=== PATIENT | male | born 2000 | race Hispanic/Latino ===

== ENCOUNTER 2018-04-11 08:18 | Emergency (ER) | payer SELFPAY ==
[2018-04-11] MEDS ORDERED: TETANUS/DIPHTHERIA TOXOID [ADULT] 0.5 ML VIAL IM ONE (08:38)
== END 2018-04-11 09:38 | disposition home or self-care (01) ==
LOC: EDH 08:18
DX: S91.132A Puncture wound without foreign body of left great toe without damage to nail, initial encounter (principal); Z72.0 Tobacco use; W45.8XXA Other foreign body or object entering through skin, initial encounter; Y93.89 Activity, other specified; Y92.89 Other specified places as the place of occurrence of the external cause; Y99.8 Other external cause status
CPT/HCPCS: 73660; 90471; 90714